=== PATIENT | female | born 1995 | race Caucasian/White ===

== ENCOUNTER 2018-05-16 14:21 | Emergency (ER) | payer MEDICAID ==
[~2018-05-16] VITALS: Ht 160 cm; Wt 53.2 kg
[2018-05-16] MEDS ORDERED: PRENATABS RX1 TAB PO (14:33)
[2018-05-16 14:53] LABS: EOS # 0.1 (0.04-0.40); EOS % 1.6 % (0.1-4.0); HEMATOCRIT 36.2 % (35.0-45.0); HEMOGLOBIN 12.7 g/dL (12.0-15.0); LYMPH# 1.6 (1.20-3.40); MEAN CELL VOLUME 82 fl (78-95); MEAN CORPUSCULAR HEMOGLOBIN 29 pg (26-32); MEAN CORPUSCULAR HGB CONC 35 g/dL (33-37); MEAN PLATELET VOLUME 10.5 fl (7.4-10.4); MONO # 0.4 (0.10-0.60); NEU # 4.1 (1.40-6.50); PLATELET COUNT 206 K/mm3 (130-400); RED BLOOD COUNT 4.42 M/mm3 (4.10-5.30); RED CELL DISTRIBUTION WIDTH 12.4 % (11.5-14.5); WHITE BLOOD COUNT 6.2 K/mm3 (4.8-10.8)
[2018-05-16 15:27] VITALS: BP 122/72
== END 2018-05-16 15:25 | disposition home or self-care (01) ==
LOC: ED 14:21
PROVIDERS: Family Medicine
DX: O20.9 Hemorrhage in early pregnancy, unspecified (principal); Z3A.08 8 weeks gestation of pregnancy; Z87.891 Personal history of nicotine dependence

== ENCOUNTER → 2018-09-16 | Outpatient (CLI) | payer MEDICAID ==
[~2018-09-16] MED LIST: PRENATABS RX1 TAB PO
== END ==
LOC: RAD 06:59
DX: E80.7 Disorder of bilirubin metabolism, unspecified (principal); R10.13 Epigastric pain; R11.0 Nausea; R71.8 Other abnormality of red blood cells; R10.816 Epigastric abdominal tenderness